=== PATIENT | male | born 1955 | race Caucasian/White ===

== ENCOUNTER → 2017-07-13 09:51 | Outpatient (CLI) | payer BC, SELFPAY ==
[2017-07-13 12:28] LABS: Absolute Lymphocyte Count 1.51 X10^3/ul (0.83-4.51); Absolute Neutrophil Count 4.1 X10^3/uL (2.0-7.7); Basophil# 0.04 X10^3/uL; Basophil% 0.6 % (0-1); Eosinophil# 0.12 X10^3/uL; Eosinophils% 1.9 % (0-5); Hematocrit 44.9 % (40-54); Hemoglobin 15.2 g/dl (13.0-16.5); Lymphocyte # 1.51 X10^3/ul (4.0); Lymphocyte % 23.7 % (19-41); Mean Corp Hgb Conc 33.9 g/gl (32-36); Mean Corpuscular Hgb 32.7 pg (27.0-32.0); Mean Corpuscular Volume 96.6 fL (80-94); Mean Platelet Vol. 9.1 fl (6.2-12.0); Monocyte# 0.64 X10^3/uL; Neutrophil # 4.05 X10^3/uL (2.7-7.7); Neutrophil % 63.5 % (47-70); Platelet Count 212 K/mm3 (150-450); RBC Distribution Width CV 12.8 % (11.6-14.6); RBC Distribution Width SD 43.9 fl (35.1-43.9); Red Blood Count 4.65 M/mm3 (4.6-6.2); White Blood Count 6.4 K/mm3 (4.4-11.0)
[2017-07-13 12:42] LABS: POSITIVE COUNT NO; POSITIVE DIFFERENTIAL NO; POSITIVE MORPHOLOGY NO
[2017-07-13 12:50] LABS: ALB/GLOB Ratio 1.1 RATIO (0.9-2.4); AST(SGOT) 49 U/L (15-37); Alanine Aminotransfer ALT/SGPT 86 U/L (16-61); Albumin, Serum 3.9 g/dL (3.2-5.0); Alkaline Phosphatase 83 U/L (45-117); Anion Gap 9 (5-15); BUN 11 mg/dL (7-18); BUN/Creat Ratio 12.6 RATIO (10-20); CRP < 2.90 mg/L (0.0-3.0); Chloride 106 mmol/L (98-107); Creatinine, Serum 0.88 mg/dL (0.70-1.30); EST Glomerular Filtration Rate 94 mL/min (>60); Est Glom Filt Rate - Afr Amer 114 mL/min (>60); Ferritin 251 ng/mL (26-388); Globulin 3.5 g/dL (2.2-4.2); Glucose 98 mg/dL (74-106); Iron 91 ug/dL (65-175); Magnesium 2.2 mg/dL (1.6-2.6); Potassium 3.9 mmol/L (3.5-5.1); Protein, Total 7.4 g/dL (6.4-8.2); Rheumatoid Factor < 10.0 IU/mL (<15); Sodium Level 141 mmol/L (136-145); Thyroid Stim Hormone (TSH) 2.31 uIU/mL (0.358-3.74); Uric Acid 5.3 mg/dL (3.5-7.2)
[2017-07-13 12:55] LABS: Vitamin B12 785 pg/mL (211-911); Vitamin D,25 Hydroxy 14.3 ng/mL (19.95-100.01)
[2017-07-13 14:50] LABS: Erythrocyte Sedimentation Rate 12 mm/hr (0-20)
[2017-07-16 13:50] LABS: ANTINUCLEAR ANTIBODIES DIRECT Positive (Negative)
== END ==
PROVIDERS: Family Provider Family Medicine; PCP Family Medicine; Visit Provider Family Medicine
DX: G62.9 Polyneuropathy, unspecified (principal)
CPT/HCPCS: 36415; 80053; 82306; 82607; 82728; 83540; 83735; 84403; 84443; 84550; 85025; 85652; 86038; 86140; 86431

== ENCOUNTER → 2023-02-12 | Outpatient (CLI) | payer BC, SELFPAY ==
--- NOTE | 2023-02-12 11:33 | RAD_ITS ---
PROCEDURE: Fluoroscopic guided right shoulder Injection DATE: February 12, 2023. INDICATION: Male, 68 years old. Chronic right shoulder pain. PHYSICIAN: Walker Pereira M.D. MEDICATIONS: 12 mg of betamethasone and 4 cc of 1% lidocaine. 2% lidocaine administered subcutaneously for local anesthesia. ACCESS SITE: Right shoulder. NEEDLE: 22-gauge spinal needle. FLUOROSCOPY TIME (if supplied): (1:31) minutes/seconds. 14.12 mGy. 3 images were submitted. FINDINGS: The risks, benefits, and alternatives to the procedure were explained to the patient. The specific risks of bleeding, infection, and neurovascular injury were detailed and accepted. Witnessed informed consent was obtained. A 22-gauge spinal needle was positioned under radiographic fluoroscopic localization. Approximately 2 cc of Isovue-300 instilled for localization purposes. Medication was then injected. The patient tolerated the procedure well without any immediate complications. RAD/Inj/Asp Jesus Jt Should/Hip/Knee IMPRESSION: 1. Successful fluoroscopic guided right shoulder injection. Electronically Signed: Walker Pereira MD at 13:35 EDT ,
== END | disposition home or self-care (01) ==
LOC: RAD 11:31
PROVIDERS: PCP Family Medicine; Referring Provider Specialist; Visit Provider Specialist
DX: M19.011 Primary osteoarthritis, right shoulder (principal); M75.01 Adhesive capsulitis of right shoulder
CPT/HCPCS: 20610; 77002; J0702

== ENCOUNTER → 2024-01-31 | Outpatient (CLI) | payer BC, SELFPAY ==
[2024-01-31 14:35] LABS: PSA,Total- Diagnostic 6.16 ng/mL (0.0-4.0)
== END | disposition home or self-care (01) ==
LOC: LAB 13:25
PROVIDERS: PCP Family Medicine; Referring Provider Urology; Visit Provider Urology
DX: R97.20 Elevated prostate specific antigen [PSA] (principal)
CPT/HCPCS: 36415; 84153

== ENCOUNTER → 2024-02-22 | Outpatient (CLI) | payer BC, SELFPAY ==
--- NOTE | 2024-02-22 13:08 | MRI_ITS ---
EXAMINATION: MR Prostate WO/W Contrast COMPARISON: None CLINICAL HISTORY: 69 yo M with elevated PSA Most recent PSA = 6.16 ng/ml TECHNIQUE: Standard prostate MR protocol was used before and after administration of 17 cc of IV Clariscan FINDINGS: Prostate volume: 46 cc PSA density: 0.14 ng/ml2 Length of membranous urethra: 13 mm Post-biopsy hemorrhage: There is hemorrhage within the left seminal vesicle. Multiparametric MR evaluation: Heterogeneous appearance of the central gland is consistent with benign prostatic hyperplasia. There is heterogeneous T2 hypointensity throughout the peripheral gland concerning for prostatitis. Lesion 1: There is a focal 9 mm x 5 mm T2 hypointense lesion in the left anterolateral peripheral zone near apex and is mildly bright on DWI and mildly dark on ADC map. LOCATION - left anterolateral PZ near apex T2 - 4 DWI - 3 DCE - inconclusive Overall PI-RADS v2 score = 3 Lesion 2: There is a 1.1 x 0.6 x 0.7 cm thick bandlike T2 hypointensity in the left anterior transitional zone at mid gland. It is mildly bright on DWI and moderately dark on ADC map. This may be an extension of the anterior fibromuscular stroma, however is uncertain. LOCATION -left anterior TZ at mid gland T2 - 3 DWI - 3 DCE - inconclusive Overall PI-RADS v2 score = 3 Capsular margin and neurovascular bundle: Not involved Seminal vesicles: Not involved. There is T1 hyperintensity in the medial aspect of the left seminal vesicle consistent with hemorrhage. Lymph nodes: No lymphadenopathy in the field of view. Bones: No suspicious lesions in the field of view. MRI/Pelvis W/WO Contrast IMPRESSION: Two suspicious lesions: -9 mm PI-RADS 3 lesion in the anterolateral PZ near apex. -1.1 cm PI-RADS 3 lesion in the left anterior TZ at mid gland. >No evidence of macroscopic extracapsular extension. >No evidence of seminal vesicle invasion. >No lymphadenopathy. >No suspicious bone lesions. Findings suspicious for prostatitis. If clinical concern for infection, recommend repeat imaging after infection/inflammation has resolved. Left seminal vesicle hemorrhage. Benign prostatic hyperplasia. Electronically Signed: Zach Red MD at 1:45 EDT ,
--- NOTE | 2024-02-22 13:15 | RAD_ITS ---
STUDY: X-RAY - ORBITS REASON FOR EXAM: Male, 69 years old. PRE MRI ORBITS TECHNIQUE: 2 view(s) of the orbits were obtained. COMPARISON: None. FINDINGS: Normal bilateral orbits without a metallic orbital foreign body. Normal visualized facial bones. Normal paranasal sinuses. The soft tissue structures are unremarkable. RAD/Orbits for Foreign Body IMPRESSION: No demonstrated metallic orbital foreign body. The patient is cleared for an MRI examination. Electronically Signed: Walker Pereira MD at 13:24 EDT ,
[2024-02-22 13:47] LABS: CREATININE FINGERSTICK < 1.0 mg/dL (0.70-1.30); EGFR FINGERSTICK > 60.0000 mL/min (>60)
== END | disposition home or self-care (01) ==
PROVIDERS: PCP Family Medicine; Referring Provider Urology; Visit Provider Urology
DX: Z01.812 Encounter for preprocedural laboratory examination (principal); R97.20 Elevated prostate specific antigen [PSA]; N40.0 Benign prostatic hyperplasia without lower urinary tract symptoms
CPT/HCPCS: 70030; 72197; A9575